=== PATIENT | female | born 1945 | race Caucasian/White ===

== ENCOUNTER → 2017-08-26 | Outpatient (CLI) | payer MEDICARE ==
[~2017-08-26] MED LIST: ASPI-650 PO; CALC1TAB4 PO; CELE200C PO; HYDR1TAB12 PO; IBUP200C8 PO; MULT1TAB60 PO; OXYC-306 PO; OXYC20TA42 PO; ZOLP10TA PO
== END | disposition home or self-care (01) ==
LOC: CFH 08:19
PROVIDERS: ATTEND Licensed Practical Nurse
DX: Z12.31 Encounter for screening mammogram for malignant neoplasm of breast (principal)
CPT/HCPCS: 77067

== ENCOUNTER → 2018-07-21 | Outpatient (CLI) | payer MEDICARE | END | disposition home or self-care (01) | LOC: CFH 09:23 | PROVIDERS: ATTEND Family Medicine | DX: R05 Cough (principal) | CPT/HCPCS: 71046 ==

== ENCOUNTER → 2018-08-27 | Outpatient (CLI) | payer MEDICARE ==
[~2018-08-27] MED LIST changes: -HYDR1TAB12 PO; +HYDR1TAB13 PO
== END | disposition home or self-care (01) ==
LOC: CFH 13:55
PROVIDERS: ATTEND Licensed Practical Nurse
DX: Z12.31 Encounter for screening mammogram for malignant neoplasm of breast (principal); M81.0 Age-related osteoporosis without current pathological fracture
CPT/HCPCS: 77080; 77067

== ENCOUNTER 2019-01-07 18:26 | Inpatient (IN) | payer MEDICARE ==
[~2019-01-07] VITALS: Ht 172.7 cm; Wt 81.6 kg
[2019-01-07] MEDS ORDERED: ONDANSETRON 2MG/ML, 2ML IVPush ONE ×2 (19:00→20:30)
[2019-01-07] MEDS ORDERED: SODIUM CHLORIDE FLUSH 10ML SYR IVF ONE (19:00)
[2019-01-07] MEDS ORDERED: SODIUM CHLORIDE 0.9% 1,000ML IVBOLUS ONE (19:00)
[2019-01-07] MEDS ORDERED: ONDANSETRON 2MG/ML, 2ML ONE ×2 (19:11→19:46)
[2019-01-07 19:12] LABS: BASOPHILS # (AUTO) 0.01 x10^3/uL (0-0.1); BASOPHILS % (AUTO) 0 % (0-1); EOSINOPHILS # (AUTO) 0.12 x10^3/uL (0-0.4); EOSINOPHILS % (AUTO) 1 % (1-7); LYMPHOCYTES # (AUTO) 0.75 x10^3/uL (1-3.4); LYMPHOCYTES % (AUTO) 6 % (22-44); MD NO; MEAN CORPUSCULAR HEMOGLOBIN 30.8 pg (27.0-34.8); MEAN CORPUSCULAR HGB CONC 33.2 g/dL (32.4-35.8); MEAN CORPUSCULAR VOLUME 92.7 fL (80-100); MEAN PLATELET VOLUME 8.2 fL (7.4-10.4); MONOCYTES # (AUTO) 0.49 x10^3/uL (0.2-0.8); MONOCYTES % (AUTO) 4 % (2-9); NEUTROPHILS # (AUTO) 10.37 x10^3/uL (1.8-6.8); NEUTROPHILS % (AUTO) 88 % (42-75); PLATELET COUNT 271 x10^3/uL (130-400); RED BLOOD COUNT 4.37 x10^6/uL (3.82-5.3); RED CELL DISTRIBUTION WIDTH 14.1 % (9.6-15.2)
[2019-01-07] MEDS ORDERED: MORPHINE SULFATE 4 MG/ML, 1ML ONE ×2 (19:12→19:46)
[2019-01-07] MEDS: MORPHINE SULFATE 4 MG/ML, 1ML IVPush PRN ×2 (19:16→19:57)
[2019-01-07 19:21] LABS: ALANINE AMINOTRANSFERASE 31 U/L (12-78); ALBUMIN 4.1 g/dL (3.4-5.0); ANION GAP 7 mmol/L (5-15); CALCIUM 10.2 mg/dL (8.5-10.1); CHLORIDE 108 mmol/L (98-107); CREATININE 1.82 mg/dL (0.55-1.02)
[2019-01-07 19:23] LABS: ALKALINE PHOSPHATASE 89 U/L (45-117); BILIRUBIN,TOTAL 0.5 mg/dL (0.2-1.0); TOTAL PROTEIN 8.2 g/dL (6.4-8.2)
[2019-01-07] MEDS ORDERED: OMNIPAQUE 350 MG/ML, 100ML BOTTLE ONE (20:02)
[2019-01-07] MEDS ORDERED: KETOROLAC 30 MG/1 ML IVPush ONE (20:38)
[2019-01-07] MEDS ORDERED: KETOROLAC 30 MG/1 ML ONE (20:51)
[2019-01-07 21:07] LABS: MICROSCOPIC AUTO
[2019-01-07 21:12] LABS: CULTURE INDICATED? NO
[2019-01-07] MEDS ORDERED: IBAN150T15 PO (21:20)
[2019-01-07] MEDS ORDERED: FLUT200B HOMEINH (21:22)
[2019-01-07] MEDS ORDERED: ALBU0.63 NEB (21:24)
[2019-01-07] MEDS ORDERED: CALC-500 PO (21:25)
[2019-01-07] MEDS ORDERED: MULT-658 PO (21:26)
[2019-01-07] MEDS ORDERED: CETI10CA PO (21:27)
[2019-01-08] MEDS ORDERED: POLYETHYLENE GLYCOL 17 GM PACKET PO PRN
[2019-01-08] MEDS ORDERED: DOCUSATE 100 MG CAPSULE PO PRN
[2019-01-08] MEDS ORDERED: hydrALAzine 20 MG/ML, 1ML IVPush PRN
[2019-01-08] MEDS ORDERED: morphine SULFATE 10 MG/ML, 1ML IVPush PRN
[2019-01-08] MEDS ORDERED: HYDROcodone/APAP 5/325 TABLET PO PRN
[2019-01-08] MEDS ORDERED: PROMETHAZINE 25 MG/ML, 1ML IM PRN
[2019-01-08] MEDS ORDERED: ONDANSETRON ODT 4 MG PO PRN
[2019-01-08] MEDS ORDERED: CETIRIZINE 10 MG TABLET PO ONE
[2019-01-08] MEDS ORDERED: LABETALOL 5MG/ML, 20ML IVPush PRN
[2019-01-08] MEDS ORDERED: BISACODYL 10 MG SUPP PR PRN
[2019-01-08] MEDS ORDERED: ONDANSETRON 2MG/ML, 2ML IVPush PRN
[2019-01-08 00:20] LABS: FREE T4 (FREE THYROXINE) 1.25 ng/dL (0.76-1.46)
[2019-01-08] MEDS ORDERED: ALBUTEROL SULFATE 2.5 MG/3 ML NPPB PRN ×2 (00:30→13:00)
[2019-01-08 00:36] LABS: HEMOGLOBIN A1C 5.7 % (4.2-6.3)
[2019-01-08] MEDS: SODIUM CHLORIDE 0.9% 1,000 ML IV SCH ×3 (00:36→15:30)
[2019-01-08 01:07] VITALS: BP 137/77
[2019-01-08 05:51] LABS: BASOPHILS # (AUTO) 0.03 x10^3/uL (0-0.1); BASOPHILS % (AUTO) 0 % (0-1); EOSINOPHILS # (AUTO) 0.18 x10^3/uL (0-0.4); EOSINOPHILS % (AUTO) 2 % (1-7); LYMPHOCYTES # (AUTO) 1.61 x10^3/uL (1-3.4); LYMPHOCYTES % (AUTO) 17 % (22-44); MD NO; MEAN CORPUSCULAR HEMOGLOBIN 30.8 pg (27.0-34.8); MEAN CORPUSCULAR HGB CONC 33.3 g/dL (32.4-35.8); MEAN CORPUSCULAR VOLUME 92.4 fL (80-100); MEAN PLATELET VOLUME 8.5 fL (7.4-10.4); MONOCYTES # (AUTO) 0.61 x10^3/uL (0.2-0.8); MONOCYTES % (AUTO) 7 % (2-9); NEUTROPHILS # (AUTO) 6.99 x10^3/uL (1.8-6.8); NEUTROPHILS % (AUTO) 74 % (42-75); PLATELET COUNT 212 x10^3/uL (130-400); RED BLOOD COUNT 3.65 x10^6/uL (3.82-5.3); RED CELL DISTRIBUTION WIDTH 14.2 % (9.6-15.2)
[2019-01-08 06:04] LABS: CHLORIDE 111 mmol/L (98-107)
[2019-01-08 06:11] LABS: ALANINE AMINOTRANSFERASE 23 U/L (12-78); ALBUMIN 3.1 g/dL (3.4-5.0); ALKALINE PHOSPHATASE 68 U/L (45-117); ANION GAP 7 mmol/L (5-15); BILIRUBIN,TOTAL 0.5 mg/dL (0.2-1.0); CALCIUM 8.3 mg/dL (8.5-10.1); CHOLESTEROL, TOTAL 140 mg/dL (140-239); CREATININE 1.91 mg/dL (0.55-1.02); HDL CHOL % 49 % (28-40); HDL CHOLESTEROL (DIRECT) 69 mg/dL (40-60); LDL CHOLESTEROL,CALCULATED 54 mg/dL (54-169); LDL/HDL RATIO 0.8 (0.5-3.0); TRIGLYCERIDES 83 mg/dL (50-200); VLDL CHOLESTEROL 17 mg/dL (0-25)
[2019-01-08] MEDS ORDERED: CALCIUM CARBONATE PO SCH (09:00)
[2019-01-08] MEDS ORDERED: [UNRECOGNIZED DRUG - OTHER] PO SCH (09:00)
[2019-01-08] MEDS: FLUTICASONE FUROATE 200MCG/INH HOMEINH SCH (09:00)
[2019-01-08] MEDS: MULTIVITAMIN 1 TABLET PO SCH (09:00)
[2019-01-08] MEDS ORDERED: VITAMIN D3 PO SCH (09:00)
[2019-01-08 09:05] VITALS: BP 105/66
[2019-01-08] MEDS ORDERED: FENTANYL PF 250 MCG/5ML ONE (12:00)
[2019-01-08] MEDS ORDERED: FENTANYL PF 100 MCG/2ML IV PRN (13:00)
[2019-01-08] MEDS ORDERED: MEPERIDINE/PF 25MG/0.5ML IVPush PRN (13:00)
[2019-01-08] MEDS ORDERED: OXYcodone 5 MG/5 ML ORAL.SOL UDC PO PRN (13:00)
[2019-01-08] MEDS ORDERED: HALOPERIDOL 5 MG/ML IV PRN (13:00)
[2019-01-08] MEDS ORDERED: hydrALAzine 20 MG/ML, 1ML IV PRN (13:00)
[2019-01-08] MEDS ORDERED: HYDROmorphone 2 MG/ML, 1ML IVPush PRN (13:00)
[2019-01-08] MEDS ORDERED: PROMETHAZINE 25 MG/ML, 1ML IV PRN (13:00)
[2019-01-08] MEDS ORDERED: ACETAMINOPHEN 325 MG TABLET PO PRN ×2 (13:00)
[2019-01-08] MEDS ORDERED: DEXAMETHASONE 4 MG/ML, 1ML ONE (13:22)
[2019-01-08] MEDS ORDERED: CIPROFLOXACIN/PMX 400MG/200ML 200 ML ONE (13:22)
[2019-01-08] MEDS ORDERED: LIDOCAINE-MPF 2% ,5ML ONE (13:22)
[2019-01-08] MEDS ORDERED: PROPOFOL 10 MG/ML, 20ML ONE (13:22)
[2019-01-08] MEDS ORDERED: ONDANSETRON 2MG/ML, 2ML ONE (13:22)
[2019-01-08 14:00] VITALS: BP 118/76
[2019-01-08] MEDS ORDERED: OXYcodone 5 MG/5 ML ORAL.SOL UDC ONE (14:43)
[2019-01-08] MEDS ORDERED: OMNIPAQUE 350 MG/ML, 50 ML BOTTLE ONE (14:48)
[2019-01-08 19:38] VITALS: BP 112/60
[2019-01-09 02:30] VITALS: BP 115/71
[2019-01-09 05:21] LABS: BASOPHILS # (AUTO) 0.01 x10^3/uL (0-0.1); BASOPHILS % (AUTO) 0 % (0-1); EOSINOPHILS % (AUTO) 0 % (1-7); LYMPHOCYTES # (AUTO) 0.79 x10^3/uL (1-3.4); LYMPHOCYTES % (AUTO) 9 % (22-44); MD NO; MEAN CORPUSCULAR HEMOGLOBIN 30.1 pg (27.0-34.8); MEAN CORPUSCULAR HGB CONC 32.5 g/dL (32.4-35.8); MEAN CORPUSCULAR VOLUME 92.6 fL (80-100); MONOCYTES % (AUTO) 6 % (2-9); NEUTROPHILS # (AUTO) 7.18 x10^3/uL (1.8-6.8); NEUTROPHILS % (AUTO) 85 % (42-75); PLATELET COUNT 186 x10^3/uL (130-400); RED CELL DISTRIBUTION WIDTH 14.1 % (9.6-15.2)
[2019-01-09 05:33] LABS: ANION GAP 8 mmol/L (5-15); CALCIUM 8.1 mg/dL (8.5-10.1); CHLORIDE 114 mmol/L (98-107)
[2019-01-09 05:35] LABS: CREATININE 1.16 mg/dL (0.55-1.02)
[2019-01-09 06:55] VITALS: BP 128/78
[2019-01-09] MEDS: FLUTICASONE FUROATE 200MCG/INH HOMEINH SCH (09:00)
[2019-01-09] MEDS: MULTIVITAMIN 1 TABLET PO SCH (09:42)
== END 2019-01-09 12:13 | disposition home or self-care (01) | DRG 660 ==
LOC: ED 20:10 → EDIP 21:07 → 3NE 22:20 → DCLOUNGE 01-09 12:05
PROVIDERS: ADMIT Internal Medicine; ATTEND Internal Medicine
PROC: 0TC18ZZ Extirpation of Matter from Left Kidney, Via Natural or Artificial Opening Endoscopic (ICD-10-PCS; 2019-01-08)
PROC: BT1F1ZZ Fluoroscopy of Left Kidney, Ureter and Bladder using Low Osmolar Contrast (ICD-10-PCS; 2019-01-08)
PROC: 0T778DZ Dilation of Left Ureter with Intraluminal Device, Via Natural or Artificial Opening Endoscopic (ICD-10-PCS; principal; 2019-01-08 12:00)
DX: N13.2 Hydronephrosis with renal and ureteral calculous obstruction (principal); R71.0 Precipitous drop in hematocrit; N17.0 Acute kidney failure with tubular necrosis; E83.52 Hypercalcemia; J45.909 Unspecified asthma, uncomplicated; L84 Corns and callosities; Z96.653 Presence of artificial knee joint, bilateral; M81.0 Age-related osteoporosis without current pathological fracture; N18.9 Chronic kidney disease, unspecified; Z90.710 Acquired absence of both cervix and uterus; Z79.899 Other long term (current) drug therapy; Z90.722 Acquired absence of ovaries, bilateral; Z84.1 Family history of disorders of kidney and ureter
CPT/HCPCS: 36415; 74177; 74420; 80048; 80053; 80061; 81001; 82360; 83036; 83605; 83690; 83735; 84439; 84443; 85025; 88300; 96361; 96374; 96375; 96376; G0378; J0744; J1100; J1885; J2405; J2704; J3010; Q9967; C1758; C1769; C2617; J2270; J7030

== ENCOUNTER 2019-11-16 07:50 | Outpatient (CLI) | payer MEDICARE ==
[~2019-11-16 07:50] MED LIST changes: +ALBU0.63 NEB; +CALC-500 PO; +CETI10CA PO; +FLUT200B HOMEINH; +IBAN150T15 PO; +MULT-449 PO; +MULT-658 PO; -MULT1TAB60 PO
== END 2019-11-16 23:59 | disposition home or self-care (01) ==
LOC: CFH 07:50
PROVIDERS: ATTEND Family Medicine
DX: Z12.31 Encounter for screening mammogram for malignant neoplasm of breast (principal)
CPT/HCPCS: 77067